=== PATIENT | male | born 1965 | race Two or more races ===

== ENCOUNTER 2023-03-09 18:39 | Emergency (ER) | payer OTHER ==
[~2023-03-09] VITALS: Ht 170.2 cm; Wt 96.8 kg
[2023-03-09 19:18] LABS: Basophils # (auto) 0.1 10 ^3/uL (0-0.2); Basophils % (auto) 0.9 % (0.0-2.0); Eosinophils # (auto) 0.2 10 ^3/uL (0-0.8); Eosinophils % (auto) 1.9 % (0.0-7.0); Hematocrit 48.1 % (41.0-53.0); Hemoglobin 16.4 g/dL (13.5-17.5); Lymphocytes # (auto) 3.8 10 ^3/uL (0.4-5.4); Lymphocytes % (auto) 37.4 % (10.0-50.0); Mean Corpuscular Hemoglobin 31.2 pg (28.0-32.0); Mean Corpuscular Hgb Conc. 34.1 g/dL (32.0-36.0); Mean Corpuscular Volume 91.6 fL (80.0-100.0); Monocytes # (auto) 0.7 10 ^3/uL (0-1.3); Monocytes % (auto) 7.2 % (0.0-12.0); Neutrophils # (auto) 5.4 10 ^3/uL (1.6-8.6); Neutrophils % (auto) 52.6 % (37.0-80.0); Nucleated Red Blood Cells % 0.2 %; Red Blood Cells 5.25 10^6/uL (4.5-5.90); Red Cell Distribution Width 13.6 % (11.8-14.3); White Blood Cell 10.2 10^3/uL (4.4-10.8)
[2023-03-09 19:34] LABS: Alanine Aminotransferase 46 U/L (7-40); Albumin 4.3 g/dL (3.2-4.8); Alkaline Phosphatase 129 U/L (46-116); Anion Gap 8 (5-15); Aspartate Aminotransferase 24 U/L (13-40); Blood Urea Nitrogen 14 mg/dL (9-23); Calcium 8.8 mg/dL (8.7-10.4); Carbon Dioxide 26 mmol/L (20-30); Chloride 102 mmol/L (98-107); Glucose 117 mg/dL (74-106); Magnesium 2.1 mg/dL (1.6-2.6); Potassium 4.1 mmol/L (3.5-5.1); Sodium 136 mmol/L (136-145)
[2023-03-09 19:35] LABS: Bilirubin, Total 0.4 mg/dL (0.2-1.0)
[2023-03-09 19:40] LABS: Partial Thromboplastin Time 28.7 SEC (24.5-34.5); Prothrombin Time 10.5 sec (9.3-11.8)
[2023-03-09] MEDS ORDERED: NITROGLYCERIN 0.4 MG SL TAB SL ONE (21:30)
[2023-03-10 00:20] VITALS: RESP 18; TEMP 97.8; O2SAT 96
[2023-03-10 00:34] VITALS: BP 147/89; PULSE 77
[2023-03-10] MEDS ORDERED: NITR0.4S29 SL (00:55)
== END 2023-03-10 01:05 | disposition home or self-care (01) ==
LOC: ER 18:39
DX: I20.9 Angina pectoris, unspecified (principal); R07.89 Other chest pain
CPT/HCPCS: 36415; 71045; 80053; 83735; 83880; 84484; 85025; 85610; 85730; 93005